=== PATIENT | male | born 1980 | race Caucasian/White ===

== ENCOUNTER 2019-02-22 14:13 | Emergency (ER) | payer OTHER ==
[2019-02-22 15:45] LABS: BASOPHILS # (AUTO) 0.1 10^3/uL (0.0-0.1); BASOPHILS % (AUTO) 1.1 %; EOSINOPHILS # (AUTO) 0.1 10^3/uL (0.0-0.7); EOSINOPHILS % (AUTO) 0.8 %; HGB - HEMOGLOBIN 14.6 g/dL (14.0-18.0); LYMPHOCYTES # (AUTO) 0.9 10^3/uL (1.5-3.5); LYMPHOCYTES % (AUTO) 11.6 %; MEAN CORPUSCULAR HEMOGLOBIN 30.1 pg (27.0-31.0); MEAN CORPUSCULAR HGB CONC 33.7 g/dL (32.0-36.0); MEAN CORPUSCULAR VOLUME 89.3 fL (80.0-94.0); MEAN PLATELET VOLUME 7.3 fL (7.4-11.4); MONOCYTES # (AUTO) 0.7 10^3/uL (0.0-1.0); MONOCYTES % (AUTO) 8.2 %; NEUTROPHILS # (AUTO) 6.4 10^3/uL (1.5-6.6); NEUTROPHILS % (AUTO) 78.3 %; PLT - PLATELET COUNT 269 10^3/uL (130-450); RED BLOOD COUNT 4.85 10^6/uL (4.70-6.10); RED CELL DISTRIBUTION WIDTH 13.9 % (12.0-15.0); WHITE BLOOD COUNT 8.1 x10^3/uL (4.8-10.8)
[2019-02-22 15:56] LABS: ALBUMIN 4.6 g/dL (3.2-5.5); ALBUMIN/GLOBULIN RATIO 1.4 (1.0-2.2); BILIRUBIN,TOTAL 1.1 mg/dL (0.2-1.0); CALCIUM 9.5 mg/dL (8.5-10.3); CREATININE 1.1 mg/dL (0.6-1.2); TOTAL PROTEIN 7.9 g/dL (6.7-8.2)
--- NOTE | 2019-02-22 16:28 | ED Physician Documentation ---
History of Present Illness - Stated complaint Stated Complaint: N/DIZZY/LIGHT HEADED - Chief complaint Chief Complaint: General - History obtained from History obtained from: Patient, Family - History of Present Illness Timing: Yesterday - Additonal information Additional information: 38-year-old male who works out in the sun with the [employer] has deve loped some lightheadedness and dizziness over the past 2 days. He reports that he did do a lot of sweating digging a trench yesterday. He went home, consumed a lot of water and felt much better in the evening. Today he was out in the sun again working and began not to feel well with the dizziness and lightheadedness and when he was riding in the car despite having fluids he became concerned and has come to the emergency department for evaluation. Review of Systems Constitutional: denies: Fever Eyes: denies: Decreased vision Ears: denies: Ear pain Nose: denies: Rhinorrhea / runny nose, Congestion Throat: denies: Sore throat Cardiac: denies: Chest pain / pressure, Palpitations Respiratory: reports: Dyspnea. denies: Cough GI: denies: Abdominal Pain, Nausea, Vomiting : denies: Dysuria, Frequency Skin: denies: Rash Musculoskeletal: denies: Neck pain, Back pain, Extremity pain Neurologic: reports: Other (dizzy/lightheaded) PD PAST MEDICAL HISTORY - Allergies Allergies/Adverse Reactions: Allergies Allergy/AdvReac Type Severity Reaction Status Date / Time No Known Drug Allergies Allergy Verified 02/22/19 14:21 PD ED PE NORMAL - Vitals Vital signs reviewed: Yes (tachy and hypertensive ) - General General: Alert and oriented X 3, No acute distress, Well developed/nourished - HEENT HEENT: Atraumatic, PERRL, EOMI, Ears normal, Pharynx benign, Dentition benign, Other (dry mucous membranes ) - Neck Neck: Supple, no meningeal sign, No bony TTP - Cardiac Cardiac: No murmur, Other (tachy ) - Respiratory Respiratory: No respiratory distress, Clear bilaterally - Abdomen Abdomen: Soft, Non tender - Back Back: No CVA TTP, No spinal TTP - Derm Derm: Normal color, Warm and dry, No rash - Extremities Extremities: No deformity, No edema - Neuro Neuro: Alert and oriented X 3, 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-12 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, No motor deficit, No sensory deficit, Normal speech Eye Opening: Spontaneous Motor: Obeys Commands Verbal: Oriented GCS Score: 15 - Psych Psych: Normal mood, Normal affect Results - Vitals Vitals: Vital Signs - 24 hr 02/22/19 02/22/19 14:18 15:53 Temperature 37.4 C Heart Rate 106 H Respiratory 16 18 Rate Blood Pressure 170/101 H O2 Saturation 99 Oxygen O2 Source Room air - Labs Labs: Laboratory Tests 02/22/19 02/22/19 15:39 15:39 WBC 8.1 RBC 4.85 Hgb 14.6 Hct 43.3 MCV 89.3 MCH 30.1 MCHC 33.7 RDW 13.9 Plt Count 269 MPV 7.3 L Neut # (Auto) 6.4 Lymph # (Auto) 0.9 L [place] # (Auto) 0.7 Eos # (Auto) 0.1 Baso # (Auto) 0.1 Absolute Nucleated RBC 0.00 Nucleated RBC % 0.0 Sodium 136 Potassium 4.1 Chloride 100 L Carbon Dioxide 24 Anion Gap 12.0 BUN 14 Creatinine 1.1 Estimated GFR (MDRD) 74 L Glucose 103 H Calcium 9.5 Total Bilirubin 1.1 H AST 80 H ALT 62 H Alkaline Phosphatase 76 Total Protein 7.9 Albumin 4.6 Globulin 3.3 Albumin/Globulin Ratio 1.4 Lipase 29 Procedures - IVC sono (time) 1625 Bedside IVC sono: IVC measures (cm) (1.06), IVC collapsed c insp (cm) (complete), Dehydration (est 1-2 liter deficit) PD MEDICAL DECISION MAKING - ED course Complexity details: reviewed old records, reviewed results, considered differential, d/w patient, d/w family ED course: 38-year-old male with lightheadedness and a sensation that he is having to take deep breath is dehydrated on interrogation of the inferior vena cava. Despite drinking extra fluids the patient remains dehydrated. He is not vomiting and should be able to adequately hydrate. He is not diabetic and is not consuming excessive amounts of caffeine. Departure - Departure Disposition: 01 Home, Self Care Clinical Impression: Dehydration Condition: Stable Instructions: ED Dehydration Follow-Up: [facility] [place] [Provider Group]
[2019-02-22 16:38] VITALS: BP 182/113
== END 2019-02-22 16:38 | disposition home or self-care (01) ==
LOC: ED 14:13
DX: E86.0 Dehydration (principal)
CPT/HCPCS: 36415; 80053; 83690; 85025; 93005; 99283

== ENCOUNTER 2019-03-12 13:24 | Outpatient (CLI) | payer OTHER | END 2019-03-12 13:25 | disposition critical access hospital (66) | LOC: EMS 13:24 | PROVIDERS: ATTEND Surgery | DX: R42 Dizziness and giddiness (principal); R03.0 Elevated blood-pressure reading, without diagnosis of hypertension | CPT/HCPCS: A0425; A0429 ==

== ENCOUNTER 2019-03-12 13:51 | Emergency (ER) | payer OTHER ==
[2019-03-12] MEDS ORDERED: SODIUM CHLORIDE 0.9% 1,000 ML IV ONE (14:01)
[2019-03-12 14:20] LABS: BASOPHILS # (AUTO) 0.1 10^3/uL (0.0-0.1); BASOPHILS % (AUTO) 1.2 %; EOSINOPHILS # (AUTO) 0.2 10^3/uL (0.0-0.7); EOSINOPHILS % (AUTO) 2.2 %; HGB - HEMOGLOBIN 14.7 g/dL (14.0-18.0); LYMPHOCYTES # (AUTO) 1.5 10^3/uL (1.5-3.5); LYMPHOCYTES % (AUTO) 21.2 %; MEAN CORPUSCULAR HEMOGLOBIN 30.2 pg (27.0-31.0); MEAN CORPUSCULAR VOLUME 88.9 fL (80.0-94.0); MEAN PLATELET VOLUME 7.4 fL (7.4-11.4); MONOCYTES # (AUTO) 0.7 10^3/uL (0.0-1.0); MONOCYTES % (AUTO) 9.5 %; NEUTROPHILS # (AUTO) 4.7 10^3/uL (1.5-6.6); NEUTROPHILS % (AUTO) 65.9 %; PLT - PLATELET COUNT 331 10^3/uL (130-450); RED BLOOD COUNT 4.86 10^6/uL (4.70-6.10); RED CELL DISTRIBUTION WIDTH 13.7 % (12.0-15.0); WHITE BLOOD COUNT 7.2 x10^3/uL (4.8-10.8)
[2019-03-12 14:34] LABS: ALBUMIN 4.5 g/dL (3.2-5.5); ALBUMIN/GLOBULIN RATIO 1.3 (1.0-2.2); ALKALINE PHOSPHATASE 70 IU/L (42-121); ALT ALANINE AMINOTRANSFERASE 31 IU/L (10-60); AST ASPARTATE AMINOTRANSFERASE 30 IU/L (10-42); BILIRUBIN,TOTAL 0.6 mg/dL (0.2-1.0); BUN - BLOOD UREA NITROGEN 15 mg/dL (6-20); CALCIUM 9.6 mg/dL (8.5-10.3); CARBON DIOXIDE - CO2 23 mmol/L (21-32); CHLORIDE 99 mmol/L (101-111); CREATININE 1.1 mg/dL (0.6-1.2); GFR - MDRD 74 (>89); GLUCOSE 103 mg/dL (70-100); LIPASE 33 U/L (22-51); MAGNESIUM 2.1 mg/dL (1.7-2.8); PHOSPHORUS 1.7 mg/dL (2.5-4.6); SODIUM 135 mmol/L (135-145); TOTAL PROTEIN 7.9 g/dL (6.7-8.2)
[2019-03-12] MEDS ORDERED: ALBUTEROL NEB 2.5 MG/3 ML INH STA (14:53)
--- NOTE | 2019-03-12 15:10 | ED Physician Documentation ---
History of Present Illness - Stated complaint Stated Complaint: LIGHT HEADED - Chief complaint Chief Complaint: General - History obtained from History obtained from: Patient - History of Present Illness Timing: Today Pain level max: 0 Pain level now: 0 - Additonal information Additional information: 38-year-old male states that he has been feeling lightheaded today like he is going to pass out. He did drink alcohol last night. Tried to drink water this morning but still feels lightheaded when he stands up. Does not feel like the room is spinning. Does not feel off balance. Similar symptoms improved with fluids last time. No chest pain. No palpitations. No headache. No focal neurological deficits. Better resting and worse standing up Review of Systems Constitutional: denies: Fever, Chills Throat: denies: Sore throat Cardiac: denies: Chest pain / pressure Respiratory: denies: Cough GI: denies: Nausea, Vomiting Skin: denies: Rash Musculoskeletal: denies: Neck pain, Back pain Neurologic: denies: Headache PD PAST MEDICAL HISTORY - Past Medical History Past Medical History: Yes Cardiovascular: None Respiratory: None Neuro: None Endocrine/Autoimmune: None GI: None : None HEENT: None Psych: None Musculoskeletal: None Derm: None - Past Surgical History Past Surgical History: No - Allergies Allergies/Adverse Reactions: Allergies Allergy/AdvReac Type Severity Reaction Status Date / Time No Known Drug Allergies Allergy Verified 03/12/19 13:57 - Social History Does the pt smoke?: No Smoking Status: Former smoker Does the pt drink ETOH?: Yes ETOH Use: Liquor Does the pt have substance abuse?: No - Immunizations Immunizations are current?: No Immunizations: TDAP >10years/unknown - POLST Patient has POLST: No PD ED PE NORMAL - Vitals Vital signs reviewed: Yes - General General: Alert and oriented X 3, No acute distress - HEENT HEENT: PERRL, Moist mucous membranes - Neck Neck: Supple, no meningeal sign - Cardiac Cardiac: RRR, Strong equal pulses - Respiratory Respiratory: No respiratory distress, Clear bilaterally - Abdomen Abdomen: Soft, Non tender, Non distended - Derm Derm: Warm and dry - Extremities Extremities: No edema, No calf tenderness / cord - Neuro Neuro: Alert and oriented X 3, 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, No motor deficit, No sensory deficit, Normal speech Eye Opening: Spontaneous Motor: Obeys Commands Verbal: Oriented GCS Score: 15 - Psych Psych: Normal mood, Normal affect Results - Vitals Vitals: Vital Signs - 24 hr 03/12/19 03/12/19 03/12/19 13:51 15:16 15:37 Temperature 37 C Heart Rate 85 74 Heart Rate [ 90 Sitting] Heart Rate [ 87 Standing] Heart Rate [ 79 Supine] Respiratory 16 16 Rate Blood Pressure 167/114 H Blood Pressure 156/99 H [Sitting] Blood Pressure 149/100 H [Standing] Blood Pressure 164/100 H [Supine] O2 Saturation 99 03/12/19 03/12/19 03/12/19 15:40 15:42 16:10 Temperature Heart Rate 85 79 Heart Rate [ Sitting] Heart Rate [ Standing] Heart Rate [ Supine] Respiratory 12 16 20 Rate Blood Pressure 149/110 H 155/98 H Blood Pressure [Sitting] Blood Pressure [Standing] Blood Pressure [Supine] O2 Saturation 97 98 98 03/12/19 16:38 Temperature 36.6 C Heart Rate 89 Heart Rate [ Sitting] Heart Rate [ Standing] Heart Rate [ Supine] Respiratory 20 Rate Blood Pressure 158/92 H Blood Pressure [Sitting] Blood Pressure [Standing] Blood Pressure [Supine] O2 Saturation 96 Oxygen O2 Source Room air - EKG (time done) 1400 Rate: Rate (enter#) (80) Rhythm: NSR [place]: Normal Intervals: Normal CO QRS: Normal Ischemia: Normal ST segments Computer interpretation: Agree with computer - Labs Labs: Laboratory Tests 03/12/19 03/12/19 14:01 14:01 WBC 7.2 RBC 4.86 Hgb 14.7 Hct 43.2 MCV 88.9 MCH 30.2 MCHC 34.0 RDW 13.7 Plt Count 331 MPV 7.4 Neut # (Auto) 4.7 Lymph # (Auto) 1.5 [place] # (Auto) 0.7 Eos # (Auto) 0.2 Baso # (Auto) 0.1 Absolute Nucleated RBC 0.01 Nucleated RBC % 0.1 Sodium 135 Potassium 3.9 Chloride 99 L Carbon Dioxide 23 Anion Gap 13.0 BUN 15 Creatinine 1.1 Estimated GFR (MDRD) 74 L Glucose 103 H Calcium 9.6 Phosphorus 1.7 L Magnesium 2.1 Total Bilirubin 0.6 AST 30 ALT 31 Alkaline Phosphatase 70 Total Protein 7.9 Albumin 4.5 Globulin 3.4 Albumin/Globulin Ratio 1.3 Lipase 33 Ethyl Alcohol < 5.0 PD MEDICAL DECISION MAKING - ED course Complexity details: reviewed results, re-evaluated patient, considered differential, d/w patient, d/w family ED course: Patient feels better after IV fluids. Likely dehydration after drinking alcohol last night. No acute findings consistent with acute coronary syndrome. No abnormalities on telemetry. No evidence of vertigo or syncope. Patient counseled regarding signs and symptoms for which I believe and urgent re- evaluation would be necessary. Patient with good understanding of and agreement to plan and is comfortable going home at this time This document was made in part using voice recognition software. While efforts are made to proofread this document, sound alike and grammatical errors may occur. Departure - Departure Disposition: 01 Home, Self Care Clinical Impression: Dehydration Condition: Good Instructions: ED Dehydration Follow-Up: your,doctor as needed [Other] Comments: Drink plenty of fluids. Return if you worsen. Discharge Date/Time: 03/12/19 16:44
[2019-03-12 16:39] VITALS: BP 158/92
== END 2019-03-12 16:44 | disposition home or self-care (01) ==
LOC: EDUNIT# → ED 13:51
DX: E86.0 Dehydration (principal); Z87.891 Personal history of nicotine dependence
CPT/HCPCS: 36415; 80053; 80320; 83690; 83735; 84100; 85025; 93005; 94640; 96360; 99283; 99284

== ENCOUNTER 2021-04-14 08:00 | Outpatient (CLI) | payer SELFPAY ==
[2021-04-14 15:26] LABS: ALBUMIN 4.5 g/dL (3.2-5.5); ALBUMIN/GLOBULIN RATIO 1.4 (1.0-2.2); BILIRUBIN,TOTAL 0.6 mg/dL (0.2-1.0); CALCIUM 8.9 mg/dL (8.5-10.3); CREATININE 1.1 mg/dL (0.6-1.2); POTASSIUM 4.2 mmol/L (3.5-5.0); TOTAL PROTEIN 7.8 g/dL (6.7-8.2)
== END 2021-04-14 23:59 | disposition home or self-care (01) ==
LOC: LAB.S 08:00
PROVIDERS: ATTEND Physician Assistant
DX: R10.13 Epigastric pain (principal)
CPT/HCPCS: 36415; 80053; 83690

== ENCOUNTER 2021-05-26 17:01 | Outpatient (CLI) | payer SELFPAY | END 2021-05-26 17:02 | disposition home or self-care (01) | LOC: COV 17:01 | PROVIDERS: ATTEND Family Medicine | DX: U07.1 COVID-19 (principal) ==